=== PATIENT | male | born 1980 | race Caucasian/White ===

== ENCOUNTER 2024-12-21 08:44 | Emergency (ER) | payer OTHER, SELFPAY ==
[2024-12-21 08:45] VITALS: BP 139/82
--- NOTE | 2024-12-21 08:53 | ED.GENMED ---
History of Present Illness
General
Chief Complaint: Abdominal Pain
Time Seen by Provider: 12/21/24 08:52
History of Present Illness
History of Present Illness:
TIME OF INITIAL ENCOUNTER: 8:55 AM
HPI: The patient presents with relatively abrupt onset left-sided abdominal pain. He went to urgent care initially who referred him here. The patient cannot find a comfortable position. He has no fevers. He has had an appendectomy in the past.
EXAM:
GENERAL: Well appearing but appears very uncomfortable
HEENT: Moist oral mucosa
CARDIOVASCULAR: No murmurs, normal heart rate, regular rhythm, No chest wall tenderness
PULMONARY: No respiratory distress, breath sounds are clear and equal
ABDOMEN: Soft with no peritoneal signs, minimal left lower quadrant tenderness
NEUROLOGIC: Excellent strength all extremities, no coordination deficits
PSYCHIATRIC: Appropriate mental status, normal insight and judgement
EXTREMITIES: Nontender, no edema, moves all extremities equally
SKIN: No rash, no lesions
NUMBER AND COMPLEXITY OF PROBLEMS ADDRESSED AT THE ENCOUNTER
� Chronic conditions affecting care: Has had appendectomy
� Acute Exacerbation and/or Progression of Chronic Illness: This is an acute problem
� Differential Diagnosis includes: Ureteral stone, oblique muscle strain, diverticulitis, Mesenteric adenitis
AMOUNT AND/OR COMPLEXITY OF DATA TO BE REVIEWED AND ANALYZED
� I performed an independent evaluation of and my interpretation is:
EKG:
CT: CT shows a 3 mm left ureteral stone
X-rays:
Laboratory Studies: White count 1.1, hemoglobin normal, normal renal function, hematuria noted
Other:
� Review of other/old records: No old records available for review in [facility]
� Clinical information was obtained by an independent historian:I spoke to at bedside
� Prescriptions/Medications Considered but not given:
� Further testing considered but not performed:
RISK OF COMPLICATIONS AND/OR MORBIDITY OR MORTALITY OF PATIENT MANAGEMENT
� Social determinants of health affecting care: Lives at home
� Discussion with other providers: Notified Dr. Durbin of patient's presentation
� Escalation of care including admission/observation vs risk of discharge considered: The patient presents with relatively abrupt onset left lower quadrant pain. Giving Toradol, fluids, and Zofran as he has been dry heaving.
ANY OTHER UPDATES:
9:40 AM: CT shows a 3 mm left ureteral stone, the patient is markedly improved after Toradol and Dilaudid was also given.
10:20 AM: The patient's pain now worsened to the point that he is on his knees on the stretcher trying to find a comfortable position�will give additional Dilaudid and add Flomax.
10:50 AM: The patient is now markedly improved.
Phy Exam
Physical Exam
Physical Exam:
See HPI
Course
Orders/Labs/Results
Orders:
Orders
12/21/24 08:56
0.9% Sodium Chloride 1000 ml [Nss] 1,000 ml IV BOLUS
Ketorolac [Toradol] 15 mg IV NOW STA
Ondansetron Injectable [Zofran] 4 mg IV NOW STA
12/21/24 08:57
CT Abd/pel Without Iv Or Oral Urgent
Comment:
Reason For Exam: abrupt L pain; no appendix
12/21/24 09:10
Complete Blood Count/With Diff Urgent
Comprehensive Metabolic Panel Urgent
Lipase Urgent
Urinalysis Reflex To Culture Urgent
Date Specimen was Collected: 12/21/24
Time Specimen was Collected: 09:06
Urine Microscopic Reflex Cult Urgent
Urine Culture Urgent
LINDA Source: U
Specimen Description:
Date Specimen was Collected: 12/21/24
Time Specimen was Collected: 09:06
12/21/24 09:12
HYDROmorphone [Dilaudid] 1 mg IV NOW STA
12/21/24 10:23
HYDROmorphone [Dilaudid] 1 mg IV NOW STA
12/21/24 10:25
Tamsulosin [Flomax] 0.4 mg PO NOW STA
Abnormal Lab Results
12/21/24
09:10
WBC 11.1 H 10^3/uL
(4.8-10.8)
MCH 32.3 H pg
(27.0-31.0)
Absolute Neuts (auto) 7.8 H 10^3/uL
(1.4-6.5)
Chloride 109 H mmol/L
(98-107)
Glucose 147 H mg/dl
(70-99)
Total Protein 8.9 H g/dl
(6.3-8.2)
Albumin 5.1 H g/dl
(3.5-5.0)
Urine Ketones 2+ A
(Negative)
Ur Occult Blood Reflex 4+ A
(Negative)
Leukocyte Esterase Rfl 1+ A
(Negative)
Urine RBC 80-90 A /HPF
(0-2)
Urine Bacteria (Reflex) Moderate A
(Negative)
Urine Albumin (Reflex) 1+ A
(Neg - Trace)
12/21/24 09:10
12/21/24 09:10
Vital Signs
Initial and Last Documented VS:
Initial Vital Signs
Pulse Resp BP Pulse Ox
68 18 139/82 100
12/21/24 08:45 12/21/24 08:45 12/21/24 08:45 12/21/24 08:45
Last Documented Vital Signs
Pulse Resp BP Pulse Ox
68 18 134/85 100
12/21/24 08:45 12/21/24 08:45 12/21/24 10:14 12/21/24 08:45
*Critical Care Note
Total Time (30-74mins, 75-104mins- exclusive of procedures): Not Applicable
ED Attending Note
-
Portions of this chart may have been created with voice recognition software.� Occasional wrong word or��sound alike� substitutions may have occurred due to the inherent limitations of voice recognition software.
Discharge Plan
Departure
Patient Disposition: Home (Routine Discharge)
Date of Disposition: 12/21/24
Time of Disposition: 10:44
Patient with high blood pressure during this ER visit?: Yes
Discharge Problem:
Left ureteral calculus
Instructions: Kidney Stones (DC), BLOOD PRESSURE
Prescriptions:
New
oxycodone-acetaminophen [Percocet] 5-325 mg tablet
1 - 2 tab PO Q6HPRN PRN (Reason: pain) Qty: 14 0RF
ondansetron HCl 4 mg tablet
4 mg PO Q6H PRN (Reason: nausea and vomiting) Qty: 14 0RF
tamsulosin [Flomax] 0.4 mg capsule
0.4 mg PO DAILY Qty: 14 0RF
Referrals:
Dakota Durbin MD [Active] - Follow up in 5-7 days
Darwin Ibanez MD [Family Provider] -
Activity Restrictions/Additional Instructions:
I recommend 3-4 [id number] ibuprofen (Motrin) every 8 hours with food for a few days. Return here if worse. I notified Dr. Durbin of your findings here�you can call their office for follow-up. If you take Percocet for pain, I recommend
that you take something like MiraLAX to help event constipation. The urinalysis did not show any signs of infection but did show blood which is expected with a kidney stone that is stuck in the ureter.
Interventions
Interventions:
*Risk Screen - Suicide Last Done: 12/21/24 08:45
*General Assessment Last Done: 12/21/24 08:45
*Neglect/Abuse Screening Last Done: 12/21/24 08:45
*ED- Fall Risk Assessment Last Done: 12/21/24 09:23
*ED COVID-19 Vaccine History Last Done: 12/21/24 09:23
ME-Zvdhja-Tyhoqcslfn Assessment Last Done: 12/21/24 09:23
Discharge Date and Time
Print Language: QATARI
[2024-12-21] MEDS: TORADOL 15 MG IV (09:07)
[2024-12-21] MEDS: ZOFRAN 4 MG IV (09:07)
[2024-12-21] MEDS: NSS 1000 IV (09:07)
[2024-12-21] MEDS: DILAUDID 1 MG IV ×2 (09:14→10:28)
[2024-12-21 09:18] LABS: % Basophils 0.4 % (0-2); % Eosinophils 0.3 % (0-6); % Immature Granulocytes 0.4 % (0-0.5); % Lymphocytes 23.9 % (20.5-51.1); % Monocytes 4.5 % (1.7-9.3); % Neutrophils 70.5 % (42.2-75.2); Absolute Lymphocytes 2.7 10^3/uL (1.2-3.4); Absolute Monocytes 0.5 10^3/uL (0.1-0.6); Absolute Neutrophils 7.8 10^3/uL (1.4-6.5); Hematocrit 42.4 % (39.0-52.0); Hemoglobin 15.6 g/dL (13.0-18.0); Mean Corp Hgb Conc. 36.8 g/dL (33.0-37.0); Mean Corpuscular Hgb 32.3 pg (27.0-31.0); Mean Corpuscular Volume 87.8 fL (80.0-94.0); Mean Platelet Volume 9.1 fL (7.4-10.4); Nucleated Red Blood Cells % 0 % (-); Platelet Count 347 10^3/uL (130-400); Red Blood Cell Count 4.83 10^6/uL (4.70-6.10); Red Cell Dist. Width 11.9 % (11.5-14.5); White Blood Cell Count 11.1 10^3/uL (4.8-10.8)
[2024-12-21 09:46] LABS: ALT (SGPT) 33 U/L (0-50); AST (SGOT) 25 U/L (17-59); Albumin 5.1 g/dl (3.5-5.0); Alkaline Phosphatase 73 U/L (38-126); Blood Urea Nitrogen 19 mg/dl (9-20); Calcium 10.2 mg/dl (8.4-10.2); Carbon Dioxide 23 mmol/L (22-30); Chloride 109 mmol/L (98-107); Glucose 147 mg/dl (70-99); Lipase 193 U/L (23-300); Potassium 4.8 mmol/L (3.5-5.1); Sodium 144 mmol/L (135-145); Total Bilirubin 0.8 mg/dl (0.2-1.3); Total Protein 8.9 g/dl (6.3-8.2); eGFR > 60.00
[2024-12-21 10:08] LABS: Urine Albumin 1+ (Neg - Trace); Urine Bilirubin Negative (Negative); Urine Character Slightly Cloudy (Clear); Urine Color Yellow; Urine Glucose Negative (Negative); Urine Ketone 2+ (Negative); Urine Leukocyte 1+ (Negative); Urine Nitrite Negative (Negative); Urine Occult Blood 4+ (Negative); Urine Urobilinogen Negative (Neg - 1+)
[2024-12-21 10:14] VITALS: BP 134/85
[2024-12-21] MEDS: FLOMAX 0.4 MG PO (10:30)
[2024-12-21 10:38] LABS: Urine Bacteria Moderate (Negative); Urine Red Blood Cell 80-90 /HPF (0-2); Urine Squamous Cell 0-2 /LPF (Few); Urine White Cell 0-2 /HPF (0-5)
== END 2024-12-21 11:06 | disposition home or self-care (01) ==
LOC: EMR 08:44
PROVIDERS: EMERGENCY PHYSICIAN Emergency Medicine; FAMILY PHYSICIAN Family Medicine
DX: N13.2 Hydronephrosis with renal and ureteral calculous obstruction (principal); Z90.49 Acquired absence of other specified parts of digestive tract
CPT/HCPCS: 96374; 96375; 96376; 96361; 99284; 74176; 80053; 81003; 81015; 83690; 85025; 87086